=== PATIENT | female | born 1995 | race African-American/Black ===

== ENCOUNTER 2020-12-02 20:18 | Inpatient (IN) ==
[2020-12-02] MEDS ORDERED: BUTORPHANOL 2 MG/ML VIAL IV PRN (20:24)
[2020-12-02] MEDS ORDERED: MEPERIDINE 50 MG/1 ML VIAL IV PRN (20:24)
[2020-12-02] MEDS ORDERED: ONDANSETRON 4 MG/2 ML VIAL IV PRN (20:24)
[2020-12-02 20:45] LABS: Basophils % 0.2 % (0.0-0.8); Eosinophils % 0.3 % (0.00-10.9); Immature Granulocytes % 0.6 %; Immature Granulocytes Absolute 0.07 #; Lymphocytes # 2.6 10*3/uL (1.4-4.0); Lymphocytes % 21.8 % (21.3-54.2); Mean Corpuscular HGB Conc 31.3 GM/DL (32-36); Mean Corpuscular Volume 94.1 FL (87-102); Monocytes % 8.9 % (1.7-12.7); NRBC # 0.03 10*3/uL; Neutrophils % 68.2 % (38.7-73.9); Platelet Count 317 T/CUMM (130-400); Red Cell Distribution Width 13.7 % (9.3-17.3); White Blood Count 12.1 T/CUMM (4-12)
[2020-12-02 21:10] LABS: Albumin 2.4 G/DL (3.4-5.0); Bilirubin,Total 0.7 MG/DL (0.20-1.00); Calcium 8.9 MG/DL (8.5-10.1); Osmolality,Calculated 273.5 MOS/KG (273-304); Potassium 3.9 MMOL/L (3.5-5.1); Total Protein 6.9 G/DL (6.4-8.2)
[2020-12-02] MEDS ORDERED: AMPICILLIN INJ 2,000 MG in SODIUM CHLORIDE 0.9% 100 ML IV ONE (21:17)
[2020-12-02] MEDS: LACTATED RINGERS 1,000 ML IV SCH (21:33)
[2020-12-02] MEDS ORDERED: OXYTOCIN/LR 20 UNIT/1,000 ML BAG IV SCH (23:45)
[2020-12-03 00:38] LABS: RPR Confirm - Less than 1 yr NONREACTIVE (Nonreactive)
[2020-12-03] MEDS ORDERED: ePHEDrine 50 MG/ML VIAL IV PRN (02:41)
[2020-12-03] MEDS ORDERED: NALOXONE 0.4 MG/ML VIAL IV PRN (02:41)
[2020-12-03] MEDS ORDERED: diphenhydrAMINE 50 MG/1 ML VIAL IV PRN ×2 (02:41)
[2020-12-03] MEDS ORDERED: PROMETHAZINE 25 MG/1 ML VIAL IM ONE (02:41)
[2020-12-03] MEDS ORDERED: hydrOXYzine HCL 25 MG/1 ML VIAL IM PRN (02:41)
[2020-12-03] MEDS ORDERED: FAMOTIDINE 20 MG/2 ML VIAL IV PRN (02:59)
[2020-12-03] MEDS ORDERED: CITRIC ACID/SODIUM CITRATE 30 ML UDCUP PO PRN (03:00)
[2020-12-03] MEDS ORDERED: fentaNYL 2 MCG/ROPIV 0.2% EPID 100 ML EPIDURAL SCH (03:00)
[2020-12-03] MEDS: AMPICILLIN INJ 1,000 MG in SODIUM CHLORIDE 0.9% 100 ML IV SCH ×2 (04:35→07:57)
[2020-12-03] MEDS: LACTATED RINGERS 1,000 ML IV SCH ×2 (04:36→09:01)
[2020-12-03 10:37] LABS: Bilirubin,Urine Negative (Negative); Blood, Urine Negative (Negative); Glucose,Urine (UA) Negative (Negative); Ketones,Urine Negative (Negative); Mucus,Urine Occasional /LPF (Occasional); Nitrite,Urine Negative (Negative); Protein,Urine Negative; RBC,Urine 1 /HPF (0-4); Squamous Epithelial Cell,Urine Occasional /HPF (0-10); Urine Appearance CLEAR (Clear); Urine Color Yellow (Yellow); Urine Specific Gravity 1.015 (1.001-1.035); Urine Urobilinogen < 2.0 EU/DL (0.2-1.0)
[2020-12-03] MEDS ORDERED: miSOPROStoL 200 MCG TABLET ONE (11:05)
[2020-12-03] MEDS ORDERED: OXYTOCIN/LR 20 UNIT/1,000 ML BAG IV ONE ×3 (11:05→11:54)
[2020-12-03] MEDS ORDERED: METHYLERGONOVINE 0.2 MG/1 ML AMP ONE (11:05)
[2020-12-03] MEDS ORDERED: ceFAZolin 2,000 MG/50 ML DUPLEX IV ONE (11:05)
[2020-12-03] MEDS ORDERED: TRANEXAMIC ACID 1,000 MG/10 ML VIAL ONE (11:05)
[2020-12-03] MEDS ORDERED: CARBOPROST TROMETHAMINE 250 MCG/ML AMP IM ONE (11:06)
[2020-12-03] MEDS ORDERED: LIDOCAINE MPF 2% /EPI 20 ML VIAL ONE (11:11)
[2020-12-03] MEDS ORDERED: fentaNYL 100 MCG/2 ML VIAL ONE (11:22)
[2020-12-03] MEDS ORDERED: ONDANSETRON 4 MG/2 ML VIAL ONE (11:34)
[2020-12-03] MEDS ORDERED: MIDAZOLAM 2 MG/2 ML VIAL ONE (11:34)
[2020-12-03] MEDS ORDERED: MORPHINE 10 MG/10 ML VIAL ONE (11:35)
[2020-12-03] MEDS ORDERED: ACETAMINOPHEN INJ 1,000 MG/100 ML VIAL IV ONE (11:48)
[2020-12-03] MEDS ORDERED: KETOROLAC 30 MG/1 ML VIAL ONE (11:50)
[2020-12-03 11:51] LABS: Cord Arterial Blood HCO3 25.4 MMOL/L
[2020-12-03] MEDS ORDERED: propofoL 200 MG/20 ML VIAL IV ONE (11:51)
[2020-12-03 11:52] LABS: Cord Venous Blood HCO3 20.6 MMOL/L; Cord Venous Blood PO2 27.1
[2020-12-03] MEDS ORDERED: PHENYLEPHRINE 1 MG/10 ML SYRINGE IV ONE (11:52)
[2020-12-03] MEDS ORDERED: RHO(D) IMMUNE GLOBULIN 300 MCG SYRINGE IM ONE (11:54)
[2020-12-03] MEDS ORDERED: IBUPROFEN 800 MG TABLET PO PRN (11:54)
[2020-12-03] MEDS ORDERED: ONDANSETRON 4 MG/2 ML VIAL IV PRN (11:54)
[2020-12-03] MEDS ORDERED: ACETAMINOPHEN 325 MG TABLET PO PRN (11:54)
[2020-12-03] MEDS ORDERED: LACTATED RINGERS 1,000 ML IV SCH (12:00)
[2020-12-03] MEDS: KETOROLAC 30 MG/1 ML VIAL IV SCH (17:25)
[2020-12-03 19:23] LABS: Basophils % 0.1 % (0.0-0.8); Eosinophils % 0.1 % (0.00-10.9); Hematocrit 32.1 VOL% (35.7-47.0); Immature Granulocytes % 0.8 %; Immature Granulocytes Absolute 0.12 #; Lymphocytes # 1.5 10*3/uL (1.4-4.0); Lymphocytes % 10.5 % (21.3-54.2); Mean Corpuscular HGB Conc 31.2 GM/DL (32-36); Mean Corpuscular Volume 93.3 FL (87-102); Mean Platelet Volume 10.4 FL (9.6-12.0); Monocytes % 6.1 % (1.7-12.7); NRBC # 0.04 10*3/uL; Neutrophils % 82.4 % (38.7-73.9); Platelet Count 289 T/CUMM (130-400); Red Blood Count 3.44 MC/CUMM (3.8-5.5); Red Cell Distribution Width 13.5 % (9.3-17.3); White Blood Count 14.5 T/CUMM (4-12)
[2020-12-03] MEDS: ACETAMINOPHEN 500 MG TABLET PO SCH (20:01)
[2020-12-03 20:12] LABS: Lymphocytes 13 % (20-55); Segmented Neutrophils 83 % (50-85); Total Cells Counted 100
[2020-12-03 20:14] LABS: Anisocytosis Slight; Macrocytosis Slight; Platelet Estimate Adequate; Polychromasia Few
[2020-12-03] MEDS: MAGNESIUM HYDROXIDE SUSP 30 ML UDCUP PO PRN (22:25)
[2020-12-03] MEDS: DOCUSATE SODIUM 100 MG CAPSULE PO SCH (22:25)
[2020-12-04] MEDS: KETOROLAC 30 MG/1 ML VIAL IV SCH ×2 (00:19→05:28)
[2020-12-04] MEDS: ACETAMINOPHEN 500 MG TABLET PO SCH ×2 (03:03→08:40)
[2020-12-04 05:44] LABS: Basophils % 0.2 % (0.0-0.8); Eosinophils # 0.1 10*3/uL (0.0-0.87); Eosinophils % 0.3 % (0.00-10.9); Hematocrit 29.1 VOL% (35.7-47.0); Hemoglobin 9.2 GM/DL (12.0-16.0); Immature Granulocytes % 1.2 %; Immature Granulocytes Absolute 0.19 #; Lymphocytes # 2.2 10*3/uL (1.4-4.0); Lymphocytes % 13.5 % (21.3-54.2); Mean Corpuscular HGB Conc 31.6 GM/DL (32-36); Mean Corpuscular Volume 93.3 FL (87-102); Mean Platelet Volume 10.2 FL (9.6-12.0); Monocytes % 7.8 % (1.7-12.7); NRBC # 0.02 10*3/uL; Platelet Count 258 T/CUMM (130-400); Red Blood Count 3.12 MC/CUMM (3.8-5.5); Red Cell Distribution Width 13.6 % (9.3-17.3); White Blood Count 16.2 T/CUMM (4-12)
[2020-12-04 06:11] LABS: Band Neutrophils 2 % (0-10); Eosinophils 1 % (0-10); Hypochromasia 1+; Lymphocytes 8 % (20-55); Microcytosis 1+; Platelet Estimate Adequate; Segmented Neutrophils 80 % (50-85); Total Cells Counted 100
[2020-12-04] MEDS: DOCUSATE SODIUM 100 MG CAPSULE PO SCH ×2 (08:39→20:03)
[2020-12-04] MEDS: IRON (CARBONYL)/VIT C/B12/FA TABLET PO SCH (08:40)
[2020-12-04] MEDS: MULTIVITAMIN (PRENATAL) TABLET PO SCH (12:23)
[2020-12-04] MEDS: MAGNESIUM HYDROXIDE SUSP 30 ML UDCUP PO PRN (20:03)
[2020-12-04] MEDS: IBUPROFEN 800 MG TABLET PO PRN (23:13)
[2020-12-04] MEDS: SIMETHICONE CHEW 80 MG TABLET PO PRN (23:15)
[2020-12-05] MEDS ORDERED: BISACODYL 10 MG SUPP RECTAL PRN (01:32)
[2020-12-05] MEDS: IBUPROFEN 800 MG TABLET PO PRN ×2 (05:37→16:19)
[2020-12-05] MEDS: IRON (CARBONYL)/VIT C/B12/FA TABLET PO SCH (09:38)
[2020-12-05] MEDS: DOCUSATE SODIUM 100 MG CAPSULE PO SCH ×2 (09:38→21:41)
[2020-12-05] MEDS: MULTIVITAMIN (PRENATAL) TABLET PO SCH (09:38)
[2020-12-05] MEDS: SIMETHICONE CHEW 80 MG TABLET PO PRN (16:19)
[2020-12-05] MEDS: MAGNESIUM HYDROXIDE SUSP 30 ML UDCUP PO PRN (21:41)
[2020-12-06] MEDS ORDERED: WITCH HAZEL PADS 100/JAR TOP PRN (02:22)
[2020-12-06] MEDS ORDERED: HYDROCORTISONE 2.5% RECTAL CREAM 30 GM TUBE TOP PRN (02:23)
[2020-12-06] MEDS: IBUPROFEN 800 MG TABLET PO PRN (05:47)
[2020-12-06] MEDS: SIMETHICONE CHEW 80 MG TABLET PO PRN (08:30)
[2020-12-06] MEDS: MULTIVITAMIN (PRENATAL) TABLET PO SCH (09:11)
[2020-12-06] MEDS: DOCUSATE SODIUM 100 MG CAPSULE PO SCH (09:11)
[2020-12-06] MEDS: IRON (CARBONYL)/VIT C/B12/FA TABLET PO SCH (09:11)
[2020-12-06 13:02] VITALS: BP 124/75
[2020-12-06] MEDS ORDERED: DIPH/TET/ACEL PERT BOOSTER VACCINE 0.5 ML VIAL IM ONE (13:10)
== END 2020-12-06 15:20 | disposition home or self-care (01) | DRG 540 ==
LOC: N.LD 20:18 → N.OB 12-03 15:07
PROVIDERS: ADMIT Obstetrics & Gynecology; ATTEND Obstetrics & Gynecology
PROC: LDCSECT (ICD-10-PCS; 2020-12-03 11:10)